=== PATIENT | female | born 1995 | race African-American/Black ===

== ENCOUNTER 2022-04-20 12:55 | Inpatient (IN) | payer BC ==
[2022-04-20] MEDS ORDERED: hydrALAZINE 20 MG/ML VIAL SLOW IVP PRN ×2 (13:45→17:06)
[2022-04-20 14:09] LABS: Fetal Membranes Rupture RUPTURE DETECTED (No Rupture)
[2022-04-20 17:04] VITALS: BMI 33.6
[2022-04-20] MEDS ORDERED: Ondansetron PF 4 MG/2 ML Vial IVP PRN ×2 (17:06→21:24)
[2022-04-20] MEDS ORDERED: Lidocaine 1% (PF) 30 ML VIAL SC PRN (17:06)
[2022-04-20] MEDS ORDERED: Methylergonovine 0.2 MG/ML VIAL IM PRN (17:06)
[2022-04-20] MEDS ORDERED: Promethazine HCl 25 MG/ML VIAL IM PRN ×2 (17:06→21:24)
[2022-04-20] MEDS ORDERED: Diphenoxylate HCl/Atropine Tablet PO PRN (17:06)
[2022-04-20] MEDS ORDERED: Misoprostol 200 MCG TAB PR PRN (17:06)
[2022-04-20] MEDS ORDERED: Carboprost 250 MCG/ML AMP IM PRN (17:06)
[2022-04-20] MEDS ORDERED: Butorphanol Tartrate 1 MG/ML VIAL SLOW IVP PRN (17:06)
[2022-04-20] MEDS ORDERED: Lactated Ringer's 1,000 ML IV SCH (17:15)
[2022-04-20] MEDS ORDERED: NS w/ Oxytocin 30 units 500 ML IV SCH ×2 (17:15)
[2022-04-20 17:40] LABS: Hemoglobin 12.2 g/dL (12.0-15.5); Mean Corpuscular HGB CONC 33.8 g/dL (32.0-36.0); Mean Corpuscular Hemoglobin 32.7 pg (27.0-33.0); Mean Corpuscular Volume 96.8 fl (81.6-98.3); Mean Platelet Volume 10.3 fl (7.4-10.4); Platelet Count 317 10x3/uL (150-450); RBC Distribution Width 14.9 % (11.5-14.5); Red Blood Cell (RBC) Count 3.73 10x6/uL (3.90-5.03); White Blood Cell (WBC) Count 12.5 10x3/uL (3.5-10.5)
[2022-04-20 18:33] LABS: SARS-CoV-2 NAA Rapid Test Not Detected (NotDetected)
[2022-04-20 19:21] LABS: HBSAg Index 0.13 S/CO (0-0.99); Hep B Surf Ag Non-Reactive S/CO (NonReactive)
[2022-04-20 19:22] LABS: Syphilis Antibody Nonreactive (Nonreactive); Syphilis Antibody Index 0.07 S/CO (<1.00 Non-Reactive)
[2022-04-20] MEDS ORDERED: Fentanyl 2 mcg/Bup 0.1% Cadd 100 ML ONE (20:03)
[2022-04-20] MEDS ORDERED: ePHEDrine Sulfate 50 MG/10 ML VIAL SLOW IVP PRN (21:24)
[2022-04-20] MEDS ORDERED: Acetaminophen 325 MG TAB PO PRN (21:24)
[2022-04-20] MEDS ORDERED: diphenhydrAMINE 50 MG/ML VIAL IVP PRN (21:24)
[2022-04-20] MEDS ORDERED: Lactated Ringer's 500 ML IV PRN (21:24)
[2022-04-20] MEDS ORDERED: Naloxone HCl 0.4 mg/ml Vial IVP PRN ×2 (21:24)
[2022-04-20] MEDS ORDERED: Moisturizing Cream (Eucerin) 113 GM JAR TOP PRN (21:24)
[2022-04-20] MEDS ORDERED: Communication Order-Pharmacy FS SCH (21:30)
[2022-04-20] MEDS ORDERED: Fentanyl 2 mcg/Bupivacaine 0.1% Cassette 100 ML EPIDURAL SCH (21:30)
[2022-04-20] MEDS ORDERED: Fentanyl 100 MCG/2 ML VIAL ONE (22:00)
[2022-04-21] MEDS ORDERED: Fentanyl 100 MCG/2 ML VIAL ONE (02:20)
[2022-04-21] MEDS ORDERED: Preparation H Ointment 28 GM TUBE PR PRN (08:05)
[2022-04-21] MEDS ORDERED: NS w/ Oxytocin 30 units 500 ML IV SCH (08:05)
[2022-04-21] MEDS ORDERED: hydrALAZINE 20 MG/ML VIAL SLOW IVP PRN (08:05)
[2022-04-21] MEDS ORDERED: Benzocaine-Menthol 82.5 ML CAN TOP PRN (08:05)
[2022-04-21] MEDS ORDERED: Ondansetron PF 4 MG/2 ML Vial IVP PRN (08:05)
[2022-04-21] MEDS ORDERED: Bisacodyl 10 MG SUPP PR PRN (08:05)
[2022-04-21] MEDS ORDERED: Milk Of Magnesia 30 ML UDCUP PO PRN (08:05)
[2022-04-21] MEDS ORDERED: HYDROcodone/Acetaminophen 5/325 mg Tablet PO PRN ×2 (08:05)
[2022-04-21] MEDS ORDERED: diphenhydrAMINE 25 MG CAP PO PRN (08:05)
[2022-04-21] MEDS ORDERED: Lanolin Ointment 7 GM TUBE TOP PRN (08:05)
[2022-04-21] MEDS ORDERED: Boostrix 0.5 ML (Tdap) VIAL (>/=7 yrs of age) IM ONE (08:05)
[2022-04-21] MEDS: Ibuprofen 800 MG TAB PO SCH ×2 (08:47→17:02)
[2022-04-21] MEDS: Ferrous Sulfate 325 MG TAB PO SCH ×2 (10:39→17:04)
[2022-04-21] MEDS: Docusate 100 MG CAP PO SCH ×2 (10:40→21:16)
[2022-04-21] MEDS: Prenatal Vitamin 1 TAB PO SCH (10:40)
[2022-04-22] MEDS: Ibuprofen 800 MG TAB PO SCH ×4 (03:51→21:39)
[2022-04-22] MEDS: Prenatal Vitamin 1 TAB PO SCH (08:00)
[2022-04-22] MEDS: Docusate 100 MG CAP PO SCH ×2 (08:00→21:39)
[2022-04-22] MEDS: Ferrous Sulfate 325 MG TAB PO SCH ×2 (08:02→16:23)
[2022-04-23] MEDS: Ibuprofen 800 MG TAB PO SCH (05:36)
[2022-04-23] MEDS: Ferrous Sulfate 325 MG TAB PO SCH (07:27)
[2022-04-23 08:11] VITALS: BP 108/56; TEMP 98.7
[2022-04-23] MEDS: Prenatal Vitamin 1 TAB PO SCH (09:05)
[2022-04-23] MEDS: Docusate 100 MG CAP PO SCH (09:05)
== END 2022-04-23 13:50 | disposition home or self-care (01) | DRG 807 ==
LOC: CSHLD/OP 12:55 → CSHLD 04-21 08:05 → CSHPED 04-21 09:20
PROVIDERS: ADMIT Obstetrics & Gynecology; ATTEND Obstetrics & Gynecology
PROC: 10E0XZZ Delivery of Products of Conception, External Approach (ICD-10-PCS; principal; 2022-04-21)
PROC: 0KQM0ZZ Repair Perineum Muscle, Open Approach (ICD-10-PCS; 2022-04-21)
DX: O42.02 Full-term premature rupture of membranes, onset of labor within 24 hours of rupture (principal); Z37.0 Single live birth; Z20.822 Contact with and (suspected) exposure to COVID-19; Z3A.37 37 weeks gestation of pregnancy; D64.9 Anemia, unspecified; O99.02 Anemia complicating childbirth; Z79.899 Other long term (current) drug therapy; O70.1 Second degree perineal laceration during delivery
CPT/HCPCS: 36415; 51702; 76819; 84112; 85027; 86780; 86850; 86900; 86901; 87340; 87480; 87510; 87660; 99285; J0595; J2405; J2590; J3010; J7120; U0002

== ENCOUNTER 2022-12-09 17:25 | Emergency (ER) | payer BC | END 2022-12-09 21:56 | disposition home or self-care (01) | LOC: CSHERS 17:25 | DX: M54.9 Dorsalgia, unspecified (principal) | CPT/HCPCS: 99283 ==

== ENCOUNTER 2024-04-27 07:52 | Emergency (ER) | payer BC ==
[2024-04-27] MEDS ORDERED: Ondansetron ODT 4 MG TAB ONE (08:11)
== END 2024-04-27 08:19 | disposition home or self-care (01) ==
LOC: CSHERS 07:52
DX: J11.1 Influenza due to unidentified influenza virus with other respiratory manifestations (principal)
CPT/HCPCS: 93005; 93010; Q0162